=== PATIENT | male | born 1995 | race Caucasian/White ===

== ENCOUNTER → 2019-08-07 | Outpatient (CLI) | payer OTHER | LOC: LAB 17:28 | PROVIDERS: ATTEND Nurse Practitioner Family | DX: U07.1 COVID-19 (principal) | CPT/HCPCS: 87635 ==

== ENCOUNTER 2019-08-17 12:46 | Emergency (ER) | payer OTHER ==
[~2019-08-17] VITALS: Ht 180 cm; Wt 95.2 kg
--- OUTSIDE RECORDS SUMMARY | 2019-08-17 12:51 | XMS REPORT | Continuity of Care Document ---
Author Author [facility] Organization [facility] Address Unknown Phone Unavailable Care Team Providers Care Chief Radiology Name Role Phone NO, LOCAL PHYSICIAN PP Unavailable Insurance Providers Payer Name Policy Number Subscriber Name Relationship [employer] [id number] Rema Ricci Self / Same As Patient Advance Directives Directive Response Recor ded Date Advance Directives N 9:36am Problems No Known Problems or Medical conditions. Social History History Response Recorde d Date/Time Alcohol Use Denies Use 0 08/09/12 9:36am Recreational Drug Use N 08/09/12 9:36am Allergies, Adverse Reactions, Alerts Allergen Type Severity Reaction Last Updated No Known Drug Allergies 08/09/12 Medications Medication Dose Units Route Sig Qty Days No Active Prescriptions or Reported Medications Response Recorded Date/Time Status not known Unknown Results No Known Relevant Diagnostic Tests, Laboratory Data and/or Discharge Summary. Encounters Encounter Location Date/ Time Departed Emergency Room [facility] 08/09/12 9:30am
--- OUTSIDE RECORDS SUMMARY | 2019-08-17 12:51 | XMS REPORT | Continuity of Care Document ---
Author Organization Unknown Address Unknown Phone Unavailable Allergies Active Description Code Type Severity Reaction Onset Reported/Identified Relationship to Patient Clinical Status Yes No Known Drug Allergies [id number] Drug Allergy Unknown N/A 08/09/2012 Medications There is no data. Problems Date Dx Coded Attending Type Code Diagnosis Diagnosed By 08/09/2019 CARINE FINNEGAN APRN Ot U07 .1 COVID-19 Procedures There is no data. Results Test Result Range Coronavirus SARS-CoV-2 SO 2018 - 0 17:30 Coronavirus Ab [Units/volume] in Serum Positive Negative Encounters ACCT No. Visit Date/Time Discharge Status Pt. Type Provider Facility Loc./Unit Complaint [id number] 08/07/2019 17:28:00 020 23:59:59 CLS Outpatient CARINE FINNEGAN APRN [facility] LAB COUGH [id number] 08/09/2012 09:30:00 013 10:27:00 DIS Emergency
--- NOTE | 2019-08-17 13:29 | ED Respiratory ---
General Chief Complaint: Cough/Cold/Flu Symptoms Stated Complaint: POSITIVE COVID ON 08-07/SOB Nursing Triage Note: Pt to ED with concern of cough. Pt reports being diagnosed with COVID-19 on 08/07. Pt reports being symtom free on 08/11. Pt reports cough began again last night. Pt denies SOB, but says taking a deep breath aggravates the cough. Source: patient Exam Limitations: no limitations History of Present Illness Date Seen by Provider: Aug 17, 2019 Time Seen by Provider: 13:05 Initial Comments Patient presents to ER by private conveyance from home with chief complaint of cough shortness of breath worsening. 9 days ago he was diagnosed with COVID 19 and had 4 days of fever and malaise last 4 days. Today however his symptoms suddenly got worse. He is not having any fever today. No chills diarrhea nausea vomiting or chest pain. His cough is nonproductive. He is otherwise healthy and does not have any significant medical problems nor take any medications. He's not been on steroids or antibiotics. No history of lung disease, asthma, COPD etc. He does not smoke cigarettes. Allergies and Home Medications Allergies Coded Allergies: No Known Drug Allergies (Unverified , 08/09/12) Patient Home Medication List Home Medication List Reviewed: Yes Review of Systems Review of Systems Constitutional: No chills, No diaphoresis EENTM: No ear discharge, No ear pain Respiratory: cough, short of breath; No wheezing Cardiovascular: No chest pain, No palpitations, No syncope Gastrointestinal: No abdominal pain, No constipation, No diarrhea, No nausea Genitourinary: No discharge, No dysuria Musculoskeletal: No back pain, No joint pain All Other Systems Reviewed Negative Unless Noted: Yes Past Onbmrbg-Trlkzo-Dsdokj Hx Patient Social History Alcohol Use: Occasionally Uses Recreational Drug Use: No Smoking Status: Never a Smoker 2nd Hand Smoke Exposure: No Recent Foreign Travel: No Contact w/Someone Who Travel: No Recent Infectious Disease Expo: No Immunizations Up To Date Tetanus Booster (TDap): Less than 5yrs Past Medical History Surgeries: No Respiratory: No Cardiac: No Neurological: No Reproductive Disorders: No Gastrointestinal: No Musculoskeletal: No Endocrine: No Cancer: No Psychosocial: No Physical Exam Vital Signs - First Documented Capillary Refill : Less Than 3 Seconds Height: '" Weight: lbs. oz. kg; 29.00 BMI Method:Stated General Appearance: WD/WN, no apparent distress Eyes: Bilateral Eye Normal Inspection, Bilateral Eye PERRL, Bilateral Eye EOMI HEENT: PERRL/EOMI, normal ENT inspection, TMs normal, pharynx normal Neck: non-tender, full range of motion, supple, normal inspection Respiratory: chest non-tender, lungs clear, normal breath sounds, no accessory muscle use, respiratory distress (mild occasional cough and oxygen saturations down to about 93-94% on room air with exertion. 98-99% on room air at rest.) Cardiovascular: normal peripheral pulses, regular rate, rhythm, no edema, tachycardia (100) Gastrointestinal: normal bowel sounds, non tender, soft Extremities: normal range of motion, non-tender, normal capillary refill Neurologic/Psychiatric: no motor/sensory deficits, alert, normal mood/affect, oriented x 3 Skin: normal color, warm/dry Progress/Results/Core Measures Suspected Sepsis Recent Fever Within 48 Hours: No Infection Criteria Present: None New/Unexplained Altered Menta: No Sepsis Screen: No Definite Risk SIRS Temperature: Pulse: 106 Respiratory Rate: 20 Laboratory Tests 08/17/19 13:10: White Blood Count 7.9 Blood Pressure 159 /92 Mean: 114 Laboratory Tests 08/17/19 13:10: Creatinine 0.97, Platelet Count 232, Total Bilirubin 0.6 Results/Orders Lab Results Laboratory Tests Test 08/17/19 13:10 Range/Units White Blood Count 7.9 4.3-11.0 10^3/uL Red Blood Count 5.18 4.35-5.85 10^6/uL Hemoglobin 15.4 13.3-17.7 G/DL Hematocrit 44 40-54 % Mean Corpuscular Volume 85 80-99 FL Mean Corpuscular Hemoglobin 30 25-34 PG Mean Corpuscular Hemoglobin Concent 35 32-36 G/DL Red Cell Distribution Width 12.7 10.0-14.5 % Platelet Count 232 130-400 10^3/uL Mean Platelet Volume 11.0 H 7.4-10.4 FL Neutrophils (%) (Auto) 72 42-75 % Lymphocytes (%) (Auto) 17 12-44 % Monocytes (%) (Auto) 7 0-12 % Eosinophils (%) (Auto) 3 0-10 % Basophils (%) (Auto) 0 0-10 % Neutrophils # (Auto) 5.7 1.8-7.8 X 10^3 Lymphocytes # (Auto) 1.4 1.0-4.0 X 10^3 Monocytes # (Auto) 0.5 0.0-1.0 X 10^3 Eosinophils # (Auto) 0.3 0.0-0.3 10^3/uL Basophils # (Auto) 0.0 0.0-0.1 10^3/uL Blood Gas Puncture Site R.RADIAL Blood Gas Patient Temperature 36.7 Arterial Blood pH 7.42 7.37-7.43 Arterial Blood Partial Pressure CO2 38 35-45 MMHG Arterial Blood Partial Pressure O2 70 L 79-93 MMHG Arterial Blood HCO3 24 23-27 MMOL/L Arterial Blood Total CO2 25.6 21.0-31.0 MMOL/L Arterial Blood Oxygen Saturation 94 94-100 % Arterial Blood Base Excess 0.5 -2.5-2.5 MMOL/L Ed Test Y Blood Gas Ventilator Setting NO Blood Gas Inspired Oxygen ROOM AIR Sodium Level 138 135-145 MMOL/L Potassium Level 3.8 3.6-5.0 MMOL/L Chloride Level 104 98-107 MMOL/L Carbon Dioxide Level 21 21-32 MMOL/L Anion Gap 13 5-14 MMOL/L Blood Urea Nitrogen 15 7-18 MG/DL Creatinine 0.97 0.60-1.30 MG/DL Estimat Glomerular Filtration Rate > 60 BUN/Creatinine Ratio 15 Glucose Level 83 70-105 MG/DL Calcium Level 9.4 8.5-10.1 MG/DL Corrected Calcium 8.5-10.1 MG/DL Total Bilirubin 0.6 0.1-1.0 MG/DL Aspartate Amino Transf (AST/SGOT) 23 5-34 U/L Alanine Aminotransferase (ALT/SGPT) 43 0-55 U/L Alkaline Phosphatase 54 40-136 U/L Total Protein 7.7 6.4-8.2 GM/DL Albumin 4.6 H 3.2-4.5 GM/DL My Orders Orders - SUSY BLISS Chest 1 View, Ap/Pa Only (08/17/19 13:21) Arterial Blood Gas (08/17/19 13:23) Ed Iv/Invasive Line Start (08/17/19 13:39) Cbc With Automated Diff (08/17/19 13:50) Comprehensive Metabolic Panel (08/17/19 13:50) Blood Culture (08/17/19 13:51) Vital Signs/I&O 08/17/19 08/17/19 12:57 12:57 Temp 36.7 Pulse 106 Resp 20 B/P (MAP) 159/92 (114) Pulse Ox 99 O2 Delivery Room Air Room Air Capillary Refill : Less Than 3 Seconds Blood Pressure Mean: 114 Progress Note : Time: 13:28 Progress Note Patient does not appear to be any acute extremis or distress. He does have some shortness of breath and some low and oxygen sats on exertion such as walking. Suspect he has syndrome related to viral pneumonitis. Plan to give chest x-ray labs ABG to rule out a bacterial Infection. We'll Watch Him on the Monitor. Lungs Sound Clear. Diagnostic Imaging Diagonstic Imaging: Xray Plain Films/CT/US/NM/MRI: chest (1v) Comments NAME: REMA PABLO MED REC#: [id number] PT STATUS: REG ER : 1995 PHYSICIAN: SUSY BLISS MD ADMIT DATE: 08/17/19/ER Signed Date of Exam:08/17/19 CHEST 1 VIEW, AP/PA ONLY Indication: Cough and positive COVID. Time of Exam: 1:39 PM The heart size is normal. The pulmonary vascularity is unremarkable. The lungs are clear. No infiltrate, effusion or pneumothorax is detected. Impression: No acute cardiopulmonary process is detected. Dictated by: Dictated on workstation # [id number] Dict: 08/17/19 1337 Trans: 08/17/19 1354 [facility] [id number] Interpreted by: YESSI JUSTIN MD Electronically signed by: YESSI JUSTIN MD 08/17/19 1354 Reviewed: Reviewed by Me Departure Impression Primary Impression: COVID-19 Additional Impression: Pleurisy without effusion Disposition: 01 HOME, SELF-CARE Condition: Stable Departure-Patient Inst. Decision time for Depature: 14:36 Referrals: NO,LOCAL PHYSICIAN (PCP/Family) Primary Care Physician Patient Instructions: Coronavirus Disease 2019 (COVID-19) Overview, Pleuritic Chest Pain (DC) Add. Discharge Instructions: I think that your lungs have suffered some microscopic damage from COVID-19 which will take a few weeks to heal. If your symptoms worsen then you need to return to the ER. Drink plenty of fluids and plan to quarantine until your 72 hours without symptoms. For the chest discomfort you can use Tylenol 1000 mg every 8 hours. You may also use naproxen 1-2 tablets twice a day. All discharge instructions reviewed with patient and/or family. Voiced understanding. Scripts No Active Prescriptions or Reported Meds Work/School Note: Work Release Form Date Seen in the Emergency Department: Aug 17, 2019 Return to Work: Aug 25, 2019 Restrictions: No Restrictions Other Restrictions Listed Below: May return to work when you are symptom- free for 72 hours. SUSY BLISS Aug 17, 2019 13:29
--- NOTE | 2019-08-17 13:40 | Diagnostic Imaging Report ---
Indication: Cough and positive COVID. Time of Exam: 1:39 PM The heart size is normal. The pulmonary vascularity is unremarkable. The lungs are clear. No infiltrate, effusion or pneumothorax is detected. Impression: No acute cardiopulmonary process is detected. Dictated by: Dictated on workstation # [id number]
[2019-08-17 14:09] LABS: BASOPHILS % (AUTO) 0 % (0-10); EOSINOPHILS # (AUTO) 0.3 10^3/uL (0.0-0.3); EOSINOPHILS % (AUTO) 3 % (0-10); HEMATOCRIT 44 % (40-54); HEMOGLOBIN 15.4 G/DL (13.3-17.7); LYMPHOCYTES # (AUTO) 1.4 X 10^3 (1.0-4.0); LYMPHOCYTES % (AUTO) 17 % (12-44); MEAN CORPUSCULAR HEMOGLOBIN 30 PG (25-34); MEAN CORPUSCULAR HGB CONC 35 G/DL (32-36); MEAN CORPUSCULAR VOLUME 85 FL (80-99); MONOCYTES # (AUTO) 0.5 X 10^3 (0.0-1.0); MONOCYTES % (AUTO) 7 % (0-12); NEUTROPHILS # (AUTO) 5.7 X 10^3 (1.8-7.8); NEUTROPHILS % (AUTO) 72 % (42-75); PLATELET COUNT 232 10^3/uL (130-400); RED CELL DISTRIBUTION WIDTH 12.7 % (10.0-14.5); WHITE BLOOD COUNT 7.9 10^3/uL (4.3-11.0)
[2019-08-17 14:11] LABS: ABG BASE EXCESS 0.5 MMOL/L (-2.5-2.5); ABG OXYGEN SATURATION 94 % (94-100); ABG PCO2 38 MMHG (35-45); ABG PH 7.42 (7.37-7.43); ABG PO2 70 MMHG (79-93); ABG TCO2 25.6 MMOL/L (21.0-31.0)
[2019-08-17 14:15] LABS: ALLENS TEST Y; INSPIRED O2 ROOM AIR; PATIENT TEMP 36.7; VENTILATOR NO
[2019-08-17 14:35] LABS: ALANINE AMINOTRANSFERASE 43 U/L (0-55); ALBUMIN 4.6 GM/DL (3.2-4.5); ALKALINE PHOSPHATASE 54 U/L (40-136); BILIRUBIN,TOTAL 0.6 MG/DL (0.1-1.0); BUN/CREATININE RATIO 15; CALCIUM 9.4 MG/DL (8.5-10.1); CARBON DIOXIDE 21 MMOL/L (21-32); CHLORIDE 104 MMOL/L (98-107); CREATININE SERUM 0.97 MG/DL (0.60-1.30); GFR ESTIMATED > 60; GLUCOSE 83 MG/DL (70-105); POTASSIUM 3.8 MMOL/L (3.6-5.0); SODIUM 138 MMOL/L (135-145); TOTAL PROTEIN 7.7 GM/DL (6.4-8.2)
[2019-08-17 14:43] VITALS: BP 129/77
== END 2019-08-17 14:43 | disposition home or self-care (01) ==
LOC: EDUNIT# 12:46 → ER 12:48
DX: U07.1 COVID-19 (principal); R09.1 Pleurisy
CPT/HCPCS: 36415; 71045; 80053; 82805; 85025; 87040